=== PATIENT | male | born 1995 | race Two or more races ===

== ENCOUNTER 2021-07-13 17:17 | Emergency (ER) | payer SELFPAY ==
[~2021-07-13] VITALS: Ht 172.7 cm; Wt 102.1 kg
[2021-07-13] MEDS ORDERED: TDAP [DIPH/PERTUSSIS/TET] 0.5 ML VIAL IM ONE (17:29)
[2021-07-13] MEDS ORDERED: ONDANSETRON HCL/PF 4 MG/2 ML VIAL ONE (17:29)
[2021-07-13] MEDS ORDERED: LORAZEPAM INJ 2 MG/ML VIAL ONE (17:29)
[2021-07-13] MEDS ORDERED: LIDOCAINE 1%-EPI 1:100,000 20 ML VIAL ONE (17:30)
[2021-07-13] MEDS: TDAP [DIPH/PERTUSSIS/TET] 0.5 ML VIAL IM ONE (17:30)
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
[2021-07-13] MEDS: LORAZEPAM INJ 2 MG/ML VIAL IV ONE (17:40)
[2021-07-13] MEDS: ONDANSETRON HCL/PF 4 MG/2 ML VIAL IVP ONE (17:40)
[2021-07-13] MEDS: LIDOCAINE 1%-EPI 1:100,000 20 ML VIAL TP ONE (17:41)
[2021-07-13] MEDS: IV NS 0.9% 1,000 ML BAG IV ONE (18:30)
--- NOTE | 2021-07-13 19:20 | NUR ---
GREENSKEEPER HEAD AT BEDSIDE FOR PROCEDURE
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
[2021-07-13 19:50] LABS: BASOPHILS % (AUTO) 0.3 % (0.0-2.0); EOSINOPHILS % (AUTO) 0.1 % (0.0-6.0); HEMATOCRIT 44 % (39-51); HEMOGLOBIN 14.7 g/dL (13.5-17.5); LYMPHOCYTES # (AUTO) 1.9 K/uL (0.8-4.8); LYMPHOCYTES % (AUTO) 19.1 % (20.0-44.0); MEAN CORPUSCULAR HGB CONC 34 g/dl (31.0-36.0); MEAN CORPUSCULAR VOLUME 93 fL (80-96); MONOCYTES # (AUTO) 0.5 K/uL (0.1-1.30); MONOCYTES % (AUTO) 4.9 % (2.0-12.0); NEUTROPHILS # (AUTO) 7.7 K/uL (1.8-8.9); NEUTROPHILS % (AUTO) 75.6 % (43.0-81.0); PLATELET COUNT (AUTO) 291 K/uL (150-450); RED BLOOD CELL COUNT(AUTO) 4.74 MIL/uL (4.5-6.0); WHITE BLOOD COUNT (AUTO) 10.2 K/uL (4.3-11.0)
--- NOTE | 2021-07-13 22:13 | NUR ---
control tower radio operator at bedside for procedure
--- NOTE | 2021-07-13 22:27 | NUR ---
Patient discharged to home in stable condition. Written and verbal after care instructions given. Patient verbalizes understanding of instruction. Pt ambulatory with a steady gait
[2021-07-13 22:29] VITALS: BP 134/85
== END 2021-07-13 22:27 | disposition home or self-care (01) ==
LOC: ER 17:19
DX: S51.811A Laceration without foreign body of right forearm, initial encounter (principal); S61.511A Laceration without foreign body of right wrist, initial encounter; S51.011A Laceration without foreign body of right elbow, initial encounter; F32.9 Major depressive disorder, single episode, unspecified; F41.9 Anxiety disorder, unspecified; F10.129 Alcohol abuse with intoxication, unspecified; W25.XXXA Contact with sharp glass, initial encounter; Y93.89 Activity, other specified; Y92.89 Other specified places as the place of occurrence of the external cause; Y99.8 Other external cause status; Y90.9 Presence of alcohol in blood, level not specified
CPT/HCPCS: 12005; 36415; 73090; 73130; 85025; 90471; 90715; 96361; 96374; 96375; 99284; A6403; J2060; J2405; J3490